=== PATIENT | male | born 1985 | race Caucasian/White ===

== ENCOUNTER 2024-04-18 06:53 | Day surgery (SDC) | payer OTHER ==
[~2024-04-18] VITALS: Ht 177.8 cm; Wt 104.4 kg
[2024-04-18] MEDS ORDERED: SODIUM CHLORIDE 0.9% 1,000 ML ONE ×2 (07:43→08:39)
[2024-04-18] MEDS: SODIUM CHLORIDE 0.9% 1,000 ML IV ONE (08:42)
[2024-04-18] MEDS ORDERED: PROM118S5 PO (08:56)
[2024-04-18] MEDS ORDERED: FAMO20 PO (08:56)
[2024-04-18] MEDS ORDERED: DOXY-354 PO (08:56)
[2024-04-18] MEDS ORDERED: FLUT12AE3 IH (08:56)
[2024-04-18] MEDS ORDERED: LOSA-381 PO (08:56)
[2024-04-18] MEDS ORDERED: MONT-35 PO (08:56)
[2024-04-18] MEDS ORDERED: AZEL23SP2 NASAL (08:56)
[2024-04-18] MEDS ORDERED: ALBU18HF12 IH (08:57)
[2024-04-18] MEDS ORDERED: PRED10TA3 PO (08:58)
[2024-04-18] MEDS ORDERED: MIDAZOLAM HCL 2 MG/2 ML VIAL ONE (09:02)
[2024-04-18] MEDS ORDERED: FentaNYL CITRATE PF 100 MCG/2 ML VIAL ONE (09:02)
[2024-04-18 10:10] VITALS: PULSE 87; RESP 18; O2SAT 99
[2024-04-18] MEDS ORDERED: MethylPREDNISolone SOD SUCC 125 MG/2 ML VIAL ONE (11:01)
[2024-04-18] MEDS: MethylPREDNISolone SOD SUCC 125 MG/2 ML VIAL IVP ONE (11:02)
[2024-04-18] MEDS ORDERED: LIDOCAINE 4% 50 ML SOLUTION ONE (12:00)
[2024-04-18] MEDS ORDERED: BENZOCAINE 20% 50 MCG/SPRAY 57 GM ONE (12:00)
[2024-04-18] MEDS ORDERED: LIDOCAINE 2% 11 ML JELLY ONE (12:00)
== END 2024-04-18 12:34 | disposition home or self-care (01) ==
LOC: SURGERY 06:53
PROVIDERS: ATTEND Internal Medicine Critical Care Medicine
DX: R05.3 Chronic cough (principal); R04.2 Hemoptysis; R06.1 Stridor; R91.8 Other nonspecific abnormal finding of lung field; J98.09 Other diseases of bronchus, not elsewhere classified; J84.10 Pulmonary fibrosis, unspecified; J98.8 Other specified respiratory disorders; Z90.49 Acquired absence of other specified parts of digestive tract
CPT/HCPCS: 31623; 87206; 87101; 87220; 87070; 88108; 31624; 71045; 87015; J3010; J2250; J2919; J7030; Z7610